=== PATIENT | male | born 1980 | race Caucasian/White ===

== ENCOUNTER 2017-12-14 11:18 | Inpatient (IN) | payer SELFPAY ==
[2017-12-14] MEDS ORDERED: DIAZEPAM INJ 10 MG/2 ML DISP.SYRIN IV ONE (11:30)
--- NOTE | 2017-12-14 11:46 | ER Document Report ---
ED Seizure - General Chief Complaint: Probable Seizure Stated Complaint: FALL FACIAL INJURY Time Seen by Provider: 12/14/17 11:29 - HPI Patient complains to provider of: Other - This 37-year-old man presented for evaluation of a seizure today, he had a seizure last remembers shaking well on his porch this morning having drank as recently as 1 day prior. He is a heavy drinking habit states that he drinks approximately 12-20 beers a day, stopped as he would like to stop drinking. He has never had a seizure in the past, has had the shakes but never had true withdrawals in the past. He is not taking any medications at this time does have history of hypertension. Does not have any history of neurologic disorder has not had any illnesses recently, nothing seems to make his shaking any better and nothing seems to make it any worse. Past Medical History - General Information source: Patient, Emergency Med Personnel - Social History Smoking Status: Current Every Day Smoker Cigarette use (# per day): Yes Chew tobacco use (# tins/day): No Frequency of alcohol use: Heavy Family History: None - Medical History Medical History: Other - hypertension Review of Systems - Review of Systems Neurological/Psychological: See HPI -: Yes All other systems reviewed and negative Physical Exam - Vital signs Notes: tachycardia, normal bp - General General appearance: Anxious In distress: Mild - HEENT Head: Normocephalic Eyes: Normal Eyelashes: Normal Pupils: PERRL - Respiratory Respiratory status: No respiratory distress Chest status: Nontender Breath sounds: Normal - Cardiovascular Murmur: No - Abdominal Inspection: Normal Distension: No distension Bowel sounds: Normal - Back Back: Normal, Other - No cervical midline tenderness - Extremities General upper extremity: Normal inspection General lower extremity: Normal inspection Shoulder: Normal - Neurological Neuro grossly intact: Yes Orientation: Disoriented to place, Disoriented to events - This person had a true postictal period, somewhat confused slightly combative. [place] Coma Scale Verbal: Oriented [place] Coma Scale Motor: Obeys Commands Speech: Normal Course - Re-evaluation Re-evalutation: 12/14/17 15:22 This 37-year-old man presented for evaluation of seizure, he had previously been an alcoholic sidestep drinking and then had what appears to be a withdrawal seizure today. While he was leaving his house. He had a true postictal period thereafter. Given that he had a postictal period do believe this represents a true seizure. Currently denies any headache does endorse some confusion is uncertain where he is at this time, he does note that he is hypertensive. Does have some slight injury across the bridge of the nose. Otherwise looks okay. Moves all extremities appropriately, is neurologically intact with a GCS of 15 at this time. He is tremulous and tachycardic, have concern for potentially developing delirium tremens as such we will initiate treatment with Valium IV 10 mg. We will re-dose 5 mg p.o. at this time, pending CT of the head brought laboratory evaluation will reassess patient. Patient with a negative head CT, will initiate IV fluids for this patient will plan to admit to the hospital for treatment of his withdrawals. Have contacted Dr. Hardwick. Recent admission at this time. We will plan for monitored bed. - Laboratory Result Diagrams: 12/14/17 11:29 12/14/17 11:29 Laboratory results interpreted by me: 12/14/17 12/14/17 12/14/17 11:29 11:29 11:41 RBC 4.21 L MCV 102 H MCH 36.3 H RDW 16.4 H Seg Neutrophils % 85.2 H Lymphocytes % 6.8 L Potassium 3.3 L Carbon Dioxide 21 L BUN 2 L Glucose 164 H POC Glucose 203 H Magnesium 1.5 L AST 104 H Urine Protein Urine Blood Urine Urobilinogen 12/14/17 12:47 RBC MCV MCH RDW Seg Neutrophils % Lymphocytes % Potassium Carbon Dioxide BUN Glucose POC Glucose Magnesium AST Urine Protein >=500 H Urine Blood MODERATE H Urine Urobilinogen 4.0 H - EKG Interpretation by [place] EKG shows normal: Sinus rhythm - 85 bpm, normal axis, poor R-wave progression, modest ST segment depression in V4 V5 Discharge - Discharge Clinical Impression: Alcohol withdrawal, Seizure Condition: Fair Disposition: ADMITTED INPATIENT Admitting Provider: Hospitalist Unit Admitted: Telemetry
[2017-12-14 11:59] LABS: ABSOLUTE LYMPHOCYTES (AUTO) 0.6 10^3/uL (0.5-4.7); ABSOLUTE MONOCYTES (AUTO) 0.7 10^3/uL (0.1-1.4); ABSOLUTE NEUT (AUTO) 7.9 10^3/uL (1.7-8.2); BASOPHILS % (AUTO) 0.3 % (0-2); EOSINOPHILS % (AUTO) 0.1 % (0-6); HEMATOCRIT 43.1 % (37.9-51.0); HEMOGLOBIN 15.3 g/dL (13.5-17.0); LYMPHOCYTES % (AUTO) 6.8 % (13-45); MEAN CORPUSCULAR HEMOGLOBIN 36.3 pg (27.0-33.4); MEAN CORPUSCULAR HGB CONC 35.4 g/dL (32.0-36.0); MEAN CORPUSCULAR VOLUME 102 fl (80-97); MONOCYTES % (AUTO) 7.6 % (3-13); PLATELET COUNT 210 10^3/uL (150-450); RED BLOOD COUNT 4.21 10^6/uL (4.35-5.55); RED CELL DISTRIBUTION WIDTH 16.4 % (11.5-14.0); SEGMENTED NEUTROPHILS % (AUTO) 85.2 % (42-78); TOTAL CELLS COUNTED % (AUTO) 100 %; WHITE BLOOD COUNT 9.2 10^3/uL (4.0-10.5)
--- NOTE | 2017-12-14 12:15 | RADIOLOGY REPORT (SQ) ---
EXAM DESCRIPTION: CT HEAD WITHOUT COMPLETED DATE/TIME: 12/14/2017 12:01 pm REASON FOR STUDY: seizure COMPARISON: None. TECHNIQUE: Axial images acquired through the brain without intravenous contrast. Images reviewed wi th bone, brain and subdural windows. Additional sagittal and coronal reconstructions were generated. Images stored on PACS. All CT scanners at this facility use dose modulation, iterative reconstruction, and/or weight based d osing when appropriate to reduce radiation dose to as low as reasonably achievable (ALARA). [facility]: Dose Right [facility]: CareDose [facility]: Dose Right [facility]: Teradose 4D [facility]: Silecs RADIATION DOSE: CT Rad equipment meets quality standard of care and radiation dose reduction techniq ues were employed. CTDIvol: 53.2 mGy. DLP: 1070 mGy-cm. mGy. LIMITATIONS: None. FINDINGS: VENTRICLES: Normal size and contour. CEREBRUM: No masses. No hemorrhage. No midline shift. No evidence for acute infarction. Normal gra y/white matter differentiation. No areas of low density in the white matter. CEREBELLUM: No masses. No hemorrhage. No alteration of density. No evidence for acute infarction. EXTRAAXIAL SPACES: No fluid collections. No masses. ORBITS AND GLOBE: No intra- or extraconal masses. Normal contour of globe without masses. CALVARIUM: No fracture. PARANASAL SINUSES: There is fairly marked mucosal thickening in the left maxillary antra. Remaining paranasal sinuses are well-aerated. SOFT TISSUES: No mass or hematoma. OTHER: No other significant finding. IMPRESSION: No significant intracranial abnormalities were identified. Sinus disease as noted above . EVIDENCE OF ACUTE STROKE: NO. COMMENT: Quality ID # [id number]: Final reports with documentation of one or more dose reduction techniques (e.g., Automated exposure control, adjustment of the mA and/or kV according to patient size, use of iterative reconstruction technique) TECHNICAL DOCUMENTATION: JOB ID: [id number] [employer]- All Rights Reserved Reading location - IP/workstation name: [email or web address]
[2017-12-14 12:25] LABS: ALANINE AMINOTRANSFERASE 62 U/L (21-72); ALBUMIN 4.5 g/dL (3.5-5.0); ALKALINE PHOSPHATASE 78 U/L (38-126); ASPARTATE AMINO TRANSFERASE 104 U/L (17-59); BILIRUBIN,DIRECT 0.4 mg/dL (0.0-0.4); BILIRUBIN,TOTAL 0.9 mg/dL (0.2-1.3); BLOOD UREA NITROGEN 2 mg/dL (7-20); CALCIUM 9.4 mg/dL (8.4-10.2); GLUCOSE 164 mg/dL (75-110); POTASSIUM 3.3 mmol/L (3.6-5.0); TOTAL PROTEIN 6.9 g/dL (6.3-8.2)
[2017-12-14 12:27] LABS: ALCOHOL < 10 mg/dL (NONE DETECTED)
[2017-12-14 12:32] LABS: CARBON DIOXIDE 21 mmol/L (22-30); CHLORIDE 104 mmol/L (98-107); SODIUM 141.8 mmol/L (137-145)
[2017-12-14 12:33] LABS: ANION GAP 17 (5-19)
[2017-12-14] MEDS ORDERED: NORMAL SALINE 1000 ML 1,000 ML IV ONE (12:46)
[2017-12-14] MEDS ORDERED: DIAZEPAM 5 MG TABLET PO ONE ×2 (12:47→14:44)
[2017-12-14 13:13] LABS: APPEARANCE,URINE CLEAR; BILIRUBIN,URINE NEGATIVE (NEGATIVE); COLOR,URINE YELLOW; GLUCOSE, URINE NEGATIVE (NEGATIVE); KETONES,URINE NEGATIVE (NEGATIVE); LEUKOCYTE ESTERASE,URINE NEGATIVE (NEGATIVE); NITRITE,URINE NEGATIVE (NEGATIVE); PROTEIN,URINE >=500 mg/dL (NEGATIVE); URINE SPECIFIC GRAVITY 1.018
[2017-12-14 13:28] LABS: URINE AMPHETAMINES SCREEN NEGATIVE; URINE BARBITURATES SCREEN NEGATIVE; URINE BENZODIAZEPINES SCREEN UNCONFIRMED POSITIVE; URINE COCAINE SCREEN NEGATIVE; URINE MARIJUANA (THC) SCREEN UNCONFIRMED POSITIVE; URINE METHADONE SCREEN NEGATIVE; URINE PHENCYCLIDINE SCREEN NEGATIVE
[2017-12-14] MEDS ORDERED: PROMETHAZINE HCL INJ 25 MG/1 ML VIAL IV PRN (14:51)
--- NOTE | 2017-12-14 15:21 | PDOC H&P ---
History of Present Illness History of Present Illness: MELANY BOURGEOIS is a 37 year old male patient with long-standing history of alcohol abuse brought by EMS after he sustained accidental fall after he has seizure. Patient states he drinks about 12-18 cans of beer daily and since yesterday he could wait and try to detoxify himself, then patient starts to have withdrawal seizure. He denies chills, fever, chest pain, cough, palpitation, diaphoresis, nausea, vomiting or diarrhea. He denies dizziness, headache or blurry of vision. Patient has history of hypertension and he smokes a pack a day. Past Medical History Cardiac Medical History: Reports: Hypertension Social History Smoking Status: Current Every Day Smoker Frequency of Alcohol Use: Heavy Hx Recreational Drug Use: No Drugs: None - Advance Directive Resuscitation Status: Full Code Family History Family History: Other - Alcohol abuse Parental Family History Reviewed: Yes Children Family History Reviewed: Yes Sibling(s) Family History Reviewed.: Yes Medication/Allergy Home Medications: Albuterol Sulfate [Proair HFA Inhalation Aerosol 8.5 gm MDI] 2 puff IH Q4HP PRN 12/14/17 Review of Systems Constitutional: PRESENT: as per HPI Ears: PRESENT: as per HPI Cardiovascular: PRESENT: as per HPI Respiratory: PRESENT: as per HPI Musculoskeletal: PRESENT: as per HPI Neurological: PRESENT: as per HPI Physical Exam Vital Signs: Intake & Output 12/13/17 12/14/17 12/15/17 06:59 06:59 06:59 Weight 81.647 kg General appearance: PRESENT: mild distress Head exam: PRESENT: other - Laceration on his nose Respiratory exam: PRESENT: clear to auscultation grace. ABSENT: rales, rhonchi, wheezes Cardiovascular exam: PRESENT: RRR. ABSENT: diastolic murmur, rubs, systolic murmur GI/Abdominal exam: PRESENT: normal bowel sounds, soft. ABSENT: distended, guarding, mass, organolmegaly, rebound, tenderness Extremities exam: PRESENT: full ROM. ABSENT: calf tenderness, clubbing, pedal edema Neurological exam: PRESENT: alert, awake, oriented to time, oriented to situation Results Laboratory Results: 12/14/17 11:29 12/14/17 11:29 12/14/17 12/14/17 12/14/17 11:29 11:29 12:47 WBC 9.2 RBC 4.21 L Hgb 15.3 Hct 43.1 MCV 102 H MCH 36.3 H MCHC 35.4 RDW 16.4 H Plt Count 210 Seg Neutrophils % 85.2 H Lymphocytes % 6.8 L Monocytes % 7.6 Eosinophils % 0.1 Basophils % 0.3 Absolute Neutrophils 7.9 Absolute Lymphocytes 0.6 Absolute Monocytes 0.7 Absolute Eosinophils 0.0 Absolute Basophils 0.0 Sodium 141.8 Potassium 3.3 L Chloride 104 Carbon Dioxide 21 L Anion Gap 17 BUN 2 L Creatinine 0.76 Est GFR ( Amer) > 60 Est GFR (Non-Af Amer) > 60 Glucose 164 H Calcium 9.4 Magnesium 1.5 L Total Bilirubin 0.9 AST 104 H ALT 62 Alkaline Phosphatase 78 Total Protein 6.9 Albumin 4.5 Urine Color YELLOW Urine Appearance CLEAR Urine pH 5.0 Ur Specific [place] 1.018 Urine Protein >=500 H Urine Glucose (UA) NEGATIVE Urine Ketones NEGATIVE Urine Blood MODERATE H Urine Nitrite NEGATIVE Ur Leukocyte Esterase NEGATIVE Urine WBC (Auto) 1 Urine RBC (Auto) 1 Impressions: Head CT 12/14/17 11:32 IMPRESSION: No significant intracranial abnormalities were identified. Sinus disease as noted above. EVIDENCE OF ACUTE STROKE: NO. Assessment & Plan - Diagnosis (1) Alcohol withdrawal seizure Is this a current diagnosis for this admission?: Yes Plan: Patient has been started on IV Keppra 500 mg twice a day (2) Alcohol withdrawal Qualifiers: Complication of substance-induced condition: uncomplicated Qualified Code(s ): F10.230 - Alcohol dependence with withdrawal, uncomplicated Is this a current diagnosis for this admission?: Yes Plan: Patient has been started on as needed Ativan and scheduled diazepam. (3) Alcohol dependence Is this a current diagnosis for this admission?: Yes Plan: Patient has been counseled and encouraged to remain sober. Patient has been started on IV folic acid, thiamine and magnesium. (4) Hypertension Is this a current diagnosis for this admission?: Yes Plan: Patient has been started on Lopressor 50 mg twice daily (5) Tobacco dependence Is this a current diagnosis for this admission?: Yes Plan: And counseled and encouraged to quit smoking.
[2017-12-14] MEDS: DIAZEPAM 5 MG TABLET PO SCH (18:36)
[2017-12-14] MEDS: LANSOPRAZOLE 30 MG TAB.RAP.DR PO SCH (18:44)
[2017-12-14] MEDS: MAGNESIUM OXIDE 400 MG TABLET PO SCH (18:45)
[2017-12-14] MEDS ORDERED: METOPROLOL TARTRATE 50 MG TABLET PO SCH (18:45)
[2017-12-14] MEDS: LEVETIRACETAM 500 MG/NACL-ISO 500 MG/100 ML RTUPB IV SCH (18:46)
[2017-12-14] MEDS: LORAZEPAM INJ 2 MG/1 ML VIAL IV PRN (19:26)
[2017-12-14] MEDS: THIAMINE HCL 100 MG, FOLIC ACID 1 MG in NORMAL SALINE 250 ML IV SCH (19:27)
--- NOTE | 2017-12-14 22:29 | EKG REPORT ---
SEVERITY:- ABNORMAL ECG - SINUS RHYTHM LEFT VENTRICULAR HYPERTROPHY PROLONGED QT INTERVAL : Confirmed by: Narda Brody 14-Dec-2017 22:28:23
[2017-12-15] MEDS: DIAZEPAM 5 MG TABLET PO SCH ×5 (00:31→23:54)
[2017-12-15] MEDS ORDERED: LEVETIRACETAM 500 MG/NACL-ISO 500 MG/100 ML RTUPB IV ONE (05:49)
[2017-12-15 06:04] LABS: ABSOLUTE EOSINOPHILS # (AUTO) 0.1 10^3/uL (0.0-0.6); ABSOLUTE LYMPHOCYTES (AUTO) 1.1 10^3/uL (0.5-4.7); ABSOLUTE MONOCYTES (AUTO) 0.8 10^3/uL (0.1-1.4); ABSOLUTE NEUT (AUTO) 7.4 10^3/uL (1.7-8.2); BASOPHILS % (AUTO) 0.4 % (0-2); EOSINOPHILS % (AUTO) 1.5 % (0-6); HEMATOCRIT 40.6 % (37.9-51.0); HEMOGLOBIN 14.4 g/dL (13.5-17.0); LYMPHOCYTES % (AUTO) 11.8 % (13-45); MEAN CORPUSCULAR HEMOGLOBIN 36.3 pg (27.0-33.4); MEAN CORPUSCULAR HGB CONC 35.4 g/dL (32.0-36.0); MEAN CORPUSCULAR VOLUME 103 fl (80-97); MONOCYTES % (AUTO) 8.6 % (3-13); PLATELET COUNT 176 10^3/uL (150-450); RED BLOOD COUNT 3.96 10^6/uL (4.35-5.55); RED CELL DISTRIBUTION WIDTH 16.3 % (11.5-14.0); SEGMENTED NEUTROPHILS % (AUTO) 77.7 % (42-78); TOTAL CELLS COUNTED % (AUTO) 100 %; WHITE BLOOD COUNT 9.6 10^3/uL (4.0-10.5)
[2017-12-15] MEDS: LEVETIRACETAM 500 MG/NACL-ISO 500 MG/100 ML RTUPB IV SCH ×2 (06:04→17:43)
[2017-12-15] MEDS: LANSOPRAZOLE 30 MG TAB.RAP.DR PO SCH ×2 (06:04→17:44)
[2017-12-15 06:35] LABS: ALANINE AMINOTRANSFERASE 50 U/L (21-72); ALBUMIN 3.9 g/dL (3.5-5.0); ALKALINE PHOSPHATASE 70 U/L (38-126); ANION GAP 13 (5-19); ASPARTATE AMINO TRANSFERASE 62 U/L (17-59); BILIRUBIN,DIRECT 0.4 mg/dL (0.0-0.4); BILIRUBIN,TOTAL 1.3 mg/dL (0.2-1.3); BLOOD UREA NITROGEN 4 mg/dL (7-20); CALCIUM 9.6 mg/dL (8.4-10.2); CARBON DIOXIDE 24 mmol/L (22-30); CHLORIDE 107 mmol/L (98-107); GLUCOSE 93 mg/dL (75-110); POTASSIUM 3.2 mmol/L (3.6-5.0); SODIUM 143.5 mmol/L (137-145); TOTAL PROTEIN 6.4 g/dL (6.3-8.2)
[2017-12-15] MEDS: ENOXAPARIN SODIUM INJ 40 MG/0.4 ML DISP.SYRIN SUBCUT SCH (11:43)
[2017-12-15] MEDS: MAGNESIUM OXIDE 400 MG TABLET PO SCH ×2 (11:45→17:43)
[2017-12-15] MEDS: METOPROLOL TARTRATE 50 MG TABLET PO SCH ×2 (11:45→22:11)
[2017-12-15] MEDS ORDERED: POTASSIUM CHLORIDE 10 MEQ CAPSULE.ER PO ONE (14:02)
--- NOTE | 2017-12-15 14:02 | PDOC PROGRESS REPORT ---
Subjective Progress Note for:: 12/15/17 Subjective:: 37-year-old male alcoholic, drinks about 12-18 cans of beer a day and presented after having a seizure and therefore when he tries to stop drinking. No recurrent seizure at this time. Denies chest pain or shortness of breath. No fever or chills, denies headache. Reason For Visit: ALCOHOL WITHDRAWAL SEIZURES,ALCOHOL WITHDRAWAL Physical Exam Vital Signs: Temp Pulse Resp BP Pulse Ox 97.7 F 67 14 133/90 H 100 12/15/17 07:46 12/15/17 08:15 12/15/17 07:46 12/15/17 08:15 12/15/17 07:46 Intake & Output 12/14/17 12/15/17 12/16/17 06:59 06:59 06:59 Intake Total 351.2 Balance 351.2 Weight 63.9 kg GEN: NAD, well-developed, well-nourished CV: RRR, NL S1S2 LUNGS: CTA bilaterally ABDOMEN Soft, NT, +BS EXTERMITIES: No e/c/c NEURO: Alert, oriented 3, no focal weakness. Results Laboratory Results: 12/15/17 05:35 12/15/17 05:35 12/15/17 12/15/17 05:35 05:35 WBC 9.6 RBC 3.96 L Hgb 14.4 Hct 40.6 MCV 103 H MCH 36.3 H MCHC 35.4 RDW 16.3 H Plt Count 176 Seg Neutrophils % 77.7 Lymphocytes % 11.8 L Monocytes % 8.6 Eosinophils % 1.5 Basophils % 0.4 Absolute Neutrophils 7.4 Absolute Lymphocytes 1.1 Absolute Monocytes 0.8 Absolute Eosinophils 0.1 Absolute Basophils 0.0 Sodium 143.5 Potassium 3.2 L Chloride 107 Carbon Dioxide 24 Anion Gap 13 BUN 4 L Creatinine 0.66 Est GFR ( Amer) > 60 Est GFR (Non-Af Amer) > 60 Glucose 93 Calcium 9.6 Magnesium 1.6 Total Bilirubin 1.3 AST 62 H ALT 50 Alkaline Phosphatase 70 Total Protein 6.4 Albumin 3.9 Impressions: Head CT 12/14/17 11:32 IMPRESSION: No significant intracranial abnormalities were identified. Sinus disease as noted above. EVIDENCE OF ACUTE STROKE: NO. Assessment & Plan - Plan Summary Plan Summary: (1) Alcohol withdrawal seizure Is this a current diagnosis for this admission?: Yes Plan: Patient was been started on IV Keppra 500 mg twice a day. Currently with no recurrent seizure. We will continue for now, but patient may be able to come off of this in the future if he stops drinking and no recurrent seizures. (2) Alcohol withdrawal Qualifiers: Complication of substance-induced condition: uncomplicated Qualified Code(s ): F10.230 - Alcohol dependence with withdrawal, uncomplicated Is this a current diagnosis for this admission?: Yes Plan: We will continue as needed Ativan and scheduled diazepam. (3) Alcohol dependence Is this a current diagnosis for this admission?: Yes Plan: Patient has been counseled and encouraged to remain sober. Continue folic acid, thiamine and magnesium. (4) Hypertension Is this a current diagnosis for this admission?: Yes Plan: Continue on Lopressor 50 mg twice daily (5) Tobacco dependence Is this a current diagnosis for this admission?: Yes Plan: Smoking cessation counseling. (5) Hypokalemia Is this a current diagnosis for this admission?: Yes Plan: We will replace potassium with KCl 40 M EQ p.o. 1. Continue magnesium oxide. Follow-up Chem-7 in a.m.
[2017-12-15] MEDS: LORAZEPAM INJ 2 MG/1 ML VIAL IV PRN ×3 (15:14→22:16)
[2017-12-15] MEDS: THIAMINE HCL 100 MG, FOLIC ACID 1 MG in NORMAL SALINE 250 ML IV SCH (17:54)
[2017-12-16] MEDS: LORAZEPAM INJ 2 MG/1 ML VIAL IV PRN ×3 (00:30→10:21)
[2017-12-16 05:20] LABS: ABSOLUTE EOSINOPHILS # (AUTO) 0.2 10^3/uL (0.0-0.6); ABSOLUTE LYMPHOCYTES (AUTO) 1.3 10^3/uL (0.5-4.7); ABSOLUTE MONOCYTES (AUTO) 0.5 10^3/uL (0.1-1.4); ABSOLUTE NEUT (AUTO) 4.8 10^3/uL (1.7-8.2); BASOPHILS % (AUTO) 0.6 % (0-2); EOSINOPHILS % (AUTO) 2.3 % (0-6); HEMATOCRIT 39.1 % (37.9-51.0); HEMOGLOBIN 13.8 g/dL (13.5-17.0); LYMPHOCYTES % (AUTO) 19.1 % (13-45); MEAN CORPUSCULAR HEMOGLOBIN 36.3 pg (27.0-33.4); MEAN CORPUSCULAR HGB CONC 35.3 g/dL (32.0-36.0); MEAN CORPUSCULAR VOLUME 103 fl (80-97); MONOCYTES % (AUTO) 7.9 % (3-13); PLATELET COUNT 139 10^3/uL (150-450); RED CELL DISTRIBUTION WIDTH 16.3 % (11.5-14.0); SEGMENTED NEUTROPHILS % (AUTO) 70.1 % (42-78); TOTAL CELLS COUNTED % (AUTO) 100 %; WHITE BLOOD COUNT 6.9 10^3/uL (4.0-10.5)
[2017-12-16] MEDS: DIAZEPAM 5 MG TABLET PO SCH ×2 (05:22→12:01)
[2017-12-16] MEDS: LEVETIRACETAM 500 MG/NACL-ISO 500 MG/100 ML RTUPB IV SCH (05:24)
[2017-12-16 05:38] LABS: ALANINE AMINOTRANSFERASE 55 U/L (21-72); ALBUMIN 3.6 g/dL (3.5-5.0); ALKALINE PHOSPHATASE 63 U/L (38-126); ANION GAP 14 (5-19); ASPARTATE AMINO TRANSFERASE 63 U/L (17-59); BILIRUBIN,DIRECT 0.3 mg/dL (0.0-0.4); BILIRUBIN,TOTAL 0.9 mg/dL (0.2-1.3); BLOOD UREA NITROGEN 5 mg/dL (7-20); CALCIUM 9.3 mg/dL (8.4-10.2); CARBON DIOXIDE 22 mmol/L (22-30); CHLORIDE 108 mmol/L (98-107); GLUCOSE 124 mg/dL (75-110); POTASSIUM 3.1 mmol/L (3.6-5.0); SODIUM 143.6 mmol/L (137-145)
[2017-12-16] MEDS: LANSOPRAZOLE 30 MG TAB.RAP.DR PO SCH (05:57)
[2017-12-16] MEDS ORDERED: POTASSIUM CHLORIDE 10 MEQ CAPSULE.ER PO ONE (08:45)
[2017-12-16] MEDS ORDERED: ALBUTEROL SULFATE HFA (90 MCG/PUFF) 200 PUFF/8.5 GM MDI IH PRN (10:12)
[2017-12-16] MEDS ORDERED: HALOPERIDOL LACTATE INJ 5 MG/1 ML VIAL IV PRN (10:16)
[2017-12-16] MEDS: MAGNESIUM OXIDE 400 MG TABLET PO SCH (10:20)
[2017-12-16] MEDS: ENOXAPARIN SODIUM INJ 40 MG/0.4 ML DISP.SYRIN SUBCUT SCH (10:21)
[2017-12-16] MEDS: METOPROLOL TARTRATE 50 MG TABLET PO SCH (10:21)
[2017-12-16] MEDS ORDERED: HYDROCODONE/ACETAMINOPHEN 5-325 MG TABLET PO ONE ×2 (10:45→12:00)
[2017-12-16 13:47] VITALS: BP 133/90
--- NOTE | 2017-12-16 18:13 | PDOC DISCHARGE SUMMARY ---
General - Admit/Disc Date/PCP Admission Date/Primary Care Provider: 12/14/17 15:10 Discharge Date: 12/16/17 - Discharge Diagnosis (1) Alcohol dependence Is this a current diagnosis for this admission?: Yes (2) Alcohol withdrawal Is this a current diagnosis for this admission?: Yes (3) Alcohol withdrawal seizure Is this a current diagnosis for this admission?: Yes (4) Hypertension Is this a current diagnosis for this admission?: Yes (5) Tobacco dependence Is this a current diagnosis for this admission?: Yes - Additional Information Resuscitation Status: Full Code Discharge Diet: As Tolerated Discharge Activity: Activity As Tolerated Home Medications: Albuterol Sulfate [Proair HFA Inhalation Aerosol 8.5 gm MDI] 2 puff IH Q4HP PRN 12/14/17 History of Present Illness History of Present Illness: H&P by Dr. Will: MELANY BOURGEOIS is a 37 year old male patient with long-standing history of alcohol abuse brought by EMS after he sustained accidental fall after he has seizure. Patient states he drinks about 12-18 cans of beer daily and since yesterday he could wait and try to detoxify himself , then patient starts to have withdrawal seizure. He denies chills, fever, chest pain, cough, palpitation, diaphoresis, nausea, vomiting or diarrhea. He denies dizziness, headache or blurry of vision. Patient has history of hypertension and he smokes a pack a day. Hospital Course Hospital Course: The patient was admitted to [facility] on continuous cardiac telemetry. He was placed on IV Keppra for seizure prevention. He was provided scheduled p.o. Valium and as needed IV Ativan for alcohol withdrawal symptoms. His hypertension was further managed with Lopressor 50 mg twice daily. He was provided IV folic acid, thiamine, and magnesium. He did require p.o. potassium replacement 2. The patient informed nursing that he intended to go AMA today; therefore, psychiatry was requested to evaluate for inpatient rehab/psychiatric care/IVC needs. The psychiatric screener did evaluate the patient; at this time their formal note is not yet available, however they did clear him from psychiatric perspective. The patient was strongly encouraged to remain inpatient was advised of the danger of repeat seizures. Despite this, the patient left AGAINST MEDICAL ADVICE this afternoon. Physical Exam Vital Signs: Temp Pulse Resp BP Pulse Ox 98.0 F 65 15 133/90 H 100 12/16/17 13:46 12/16/17 13:46 12/16/17 13:46 12/16/17 13:46 12/16/17 13:46 Intake & Output 12/15/17 12/16/17 12/17/17 06:59 06:59 06:59 Intake Total 451.2 1001.2 0 Balance 451.2 1001.2 0 Weight 63.9 kg General appearance: PRESENT: no acute distress, disheveled, well-developed, well -nourished. ABSENT: cooperative Head exam: PRESENT: normocephalic, other - Ecchymosis to bilateral orbits, abrasion to bridge of nose, and chin. Eye exam: PRESENT: conjunctiva pink, EOMI, PERRLA. ABSENT: scleral icterus Ear exam: PRESENT: normal external ear exam Mouth exam: PRESENT: moist, tongue midline Neck exam: ABSENT: carotid bruit, JVD, lymphadenopathy, thyromegaly Respiratory exam: PRESENT: clear to auscultation grace, symmetrical, unlabored. ABSENT: rales, rhonchi, wheezes Cardiovascular exam: PRESENT: RRR, +S1, +S2, tachycardia. ABSENT: diastolic murmur, rubs, systolic murmur Pulses: PRESENT: normal dorsalis pedis pul Vascular exam: PRESENT: normal capillary refill GI/Abdominal exam: PRESENT: normal bowel sounds, soft. ABSENT: distended, guarding, mass, organolmegaly, rebound, tenderness Rectal exam: PRESENT: deferred Extremities exam: PRESENT: full ROM. ABSENT: calf tenderness, clubbing, pedal edema Neurological exam: PRESENT: alert, awake, oriented to person, oriented to place , oriented to time, oriented to situation, CN II-XII grossly intact, other - Tremulous. ABSENT: motor sensory deficit Psychiatric exam: PRESENT: agitated, anxious, appropriate affect. ABSENT: homicidal ideation, suicidal ideation Skin exam: PRESENT: dry, intact, warm, other - Diaphoretic. ABSENT: cyanosis, rash Results Laboratory Results: 12/16/17 04:50 12/16/17 04:50 12/16/17 12/16/17 04:50 04:50 WBC 6.9 RBC 3.80 L Hgb 13.8 Hct 39.1 MCV 103 H MCH 36.3 H MCHC 35.3 RDW 16.3 H Plt Count 139 L Seg Neutrophils % 70.1 Lymphocytes % 19.1 Monocytes % 7.9 Eosinophils % 2.3 Basophils % 0.6 Absolute Neutrophils 4.8 Absolute Lymphocytes 1.3 Absolute Monocytes 0.5 Absolute Eosinophils 0.2 Absolute Basophils 0.0 Sodium 143.6 Potassium 3.1 L Chloride 108 H Carbon Dioxide 22 Anion Gap 14 BUN 5 L Creatinine 0.68 Est GFR ( Amer) > 60 Est GFR (Non-Af Amer) > 60 Glucose 124 H Calcium 9.3 Magnesium 1.7 Total Bilirubin 0.9 AST 63 H ALT 55 Alkaline Phosphatase 63 Total Protein 6.0 L Albumin 3.6 Impressions: Head CT 12/14/17 11:32 IMPRESSION: No significant intracranial abnormalities were identified. Sinus disease as noted above. EVIDENCE OF ACUTE STROKE: NO. Qualifiers - * PATIENT BEING DISCHARGED WITH ANY OF THE FOLLOWING DIAGNOSIS: No Plan Discharge Plan: The patient left AGAINST MEDICAL ADVICE.
[2017-12-16] MEDS ORDERED: BUPROPION HCL 75 MG TABLET PO SCH (22:00)
--- NOTE | 2017-12-17 18:39 | PSYCHOLOGICAL NOTE ---
Psych Note - Psych Note Psych Note: Met with patient because patient threatened to leave against medical advice due to alcohol withdrawal. Patient had a seizure, fell down and suffered injuries. Clinician met with patient and he denies wanting to hurt himself or anyone else. Clinician staffed case with DARIN Reed and it was determined that he could be discharged from [facility].
== END 2017-12-16 14:06 | disposition left against medical advice (07) | DRG 894 ==
LOC: EDBD 11:18 → ER 11:18 → UNDOADMIN 15:10 → EH 15:10 → 3S 12-15 00:18
PROVIDERS: ADMIT Internal Medicine; ATTEND Internal Medicine
DX: F10.231 Alcohol dependence with withdrawal delirium (principal); G40.509 Epileptic seizures related to external causes, not intractable, without status epilepticus; I10 Essential (primary) hypertension; Z79.51 Long term (current) use of inhaled steroids
CPT/HCPCS: 36415; 70450; 80048; 80053; 80076; 80307; 81001; 82962; 83735; 85025; 93005; 93010; 96361; 96374; 99285; J1650; J1953; J2060; J3360; J3411; J3490; J7030; J7050

== ENCOUNTER 2017-12-21 21:40 | Emergency (ER) | payer SELFPAY ==
[2017-12-22] MEDS ORDERED: HYDROCODONE/ACETAMINOPHEN 5-325 MG TABLET PO ONE ×2 (02:29→07:17)
--- NOTE | 2017-12-22 02:29 | ER Document Report ---
ED Medical Screen (RME) - General Chief Complaint: Leg Injury Stated Complaint: FALL/LEG INJURY Time Seen by Provider: 12/22/17 02:26 Mode of Arrival: Wheelchair Information source: Patient Notes: Patient with complaint of laceration to his left calf. Patient reports that he slipped and hit a fish tank resulting in his laceration. Patient reports tetanus is up-to-date. Exam: 4 cm laceration to posterior left calf. No active bleeding at this time. I have greeted and performed a rapid initial assessment of this patient. A comprehensive ED assessment and evaluation of the patient, analysis of test results and completion of the medical decision making process will be conducted by additional ED providers. Dictation of this chart was performed using voice recognition software; therefore, there may be some unintended grammatical errors. TRAVEL OUTSIDE OF THE [place] IN LAST 30 DAYS: No - Related Data Allergies/Adverse Reactions: No Known Allergies Allergy (Unverified 12/14/17 18:43) Past Medical History - Past Medical History Cardiac Medical History: Reports: Hx Hypertension Renal/ Medical History: Denies: Hx Peritoneal Dialysis Psychiatric Medical History: Denies: Hx Depression - Immunizations History of Influenza Vaccine for 02/2017 - 07/2017 Season: No Physical Exam - Vital signs Vitals: Temp Pulse Resp BP Pulse Ox 98.5 F 80 18 136/97 H 98 12/21/17 21:54 12/21/17 21:54 12/21/17 21:54 12/21/17 21:54 12/21/17 21:54 Course - Vital Signs Vital signs: Temp Pulse Resp BP Pulse Ox 98.5 F 80 18 136/97 H 98 12/21/17 21:54 12/21/17 21:54 12/21/17 21:54 12/21/17 21:54 12/21/17 21:54
--- NOTE | 2017-12-22 03:23 | RADIOLOGY REPORT (SQ) ---
EXAM DESCRIPTION: XR TIBIA FIBULA 2 VIEWS COMPLETED DATE/TME: 12/22/2017 02:29 CLINICAL HISTORY: 37 years Male, r/o fb, laceration COMPARISON: None. Findings: Known soft tissue injury; no radioopaque foreign body. Bones, joints, and soft tissues of the XR R TIBIA FIBULA 2 VIEWS appear otherwise intact. IMPRESSION: Soft tissue injury; else, no acute findings. .
[2017-12-22] MEDS ORDERED: DIPH/PERTUSS(ACELL)/TETANUS VAC/PF 0.5 ML SYR (>=10YO) IM ONE (07:17)
[2017-12-22] MEDS ORDERED: LIDOCAINE 1%/EPINEPHRINE INJ 20 ML VIAL INJ ONE (07:18)
[2017-12-22] MEDS ORDERED: CEPHALEXIN 500 MG CAPSULE PO ONE (07:18)
--- NOTE | 2017-12-22 07:20 | ER Document Report ---
HPI - HPI Patient complains to provider of: Leg laceration Onset: Yesterday Onset/Duration: Sudden Quality of pain: Achy Pain Level: 3 Context: Patient states that he fell on an aquarium and cut his right leg. Patient is uncertain when his last tetanus immunization was. Associated Symptoms: Other - Right leg laceration Exacerbated by: Movement Relieved by: Denies Similar symptoms previously: No Recently seen / treated by doctor: No - ROS ROS below otherwise negative: Yes Systems Reviewed and Negative: Yes All other systems reviewed and negative - CONSTITUTIONAL Constitutional: DENIES: Fever - NEURO Neurology: DENIES: Headache, Weakness - CARDIOVASCULAR Cardiovascular: DENIES: Chest pain - RESPIRATORY Respiratory: DENIES: Trouble Breathing, Coughing - GASTROINTESTINAL Gastrointestinal: DENIES: Abdominal Pain - MUSCULOSKELETAL Musculoskeletal: REPORTS: Extremity pain - right leg laceration - DERM Skin Problems: Laceration Past Medical History - General Information source: Patient - Social History Smoking Status: Current Every Day Smoker Smoking Education Provided: Yes Frequency of alcohol use: admits to drinking 18-20 beers/day Drug Abuse: None Occupation: None Family History: None Patient has suicidal ideation: No Patient has homicidal ideation: No - Past Medical History Cardiac Medical History: Reports: Hx Hypertension Renal/ Medical History: Denies: Hx Peritoneal Dialysis Psychiatric Medical History: Denies: Hx Depression Past Surgical History: Reports: Hx Abdominal Surgery - hernia repair, Hx Orthopedic Surgery - left knee replacement Vertical Provider Document - CONSTITUTIONAL Agree With Documented VS: Yes Exam Limitations: No Limitations General Appearance: WD/WN, No Apparent Distress - INFECTION CONTROL TRAVEL OUTSIDE OF THE [place] IN LAST 30 DAYS: No - HEENT HEENT: Atraumatic, Normocephalic - NECK Neck: Normal Inspection - RESPIRATORY Respiratory: Breath Sounds Normal, No Respiratory Distress - CARDIOVASCULAR Cardiovascular: Regular Rate, Regular Rhythm - BACK Back: Normal Inspection - MUSCULOSKELETAL/EXTREMETIES Musculoskeletal/Extremeties: MAEW, FROM - NEURO Level of Consciousness: Awake, Alert, Appropriate Motor/Sensory: No Motor Deficit - DERM Integumentary: Warm, Dry, Laceration - 6 cm lac to right calf Course - Vital Signs Vital signs: Temp Pulse Resp BP Pulse Ox 98.7 F 85 18 133/74 H 94 12/22/17 06:53 12/22/17 06:53 12/22/17 06:53 12/22/17 06:53 12/22/17 06:53 - Diagnostic Test Radiology reviewed: Reports reviewed Procedures - Laceration/Wound Repair Right Leg Wound length (cm): 6 Wound's Depth, Shape: Irregular Anesthetic type: 1% Lidocaine w/epi Volume Anesthetic (mLs): 3 Wound explored: Clean, No foreign body removed Irrigated w/ Saline (mLs): 1,200 Wound Repaired With: Sutures Suture Size/Type: 4:0, Nylon Number of Sutures: 9 Layer Closure?: No Deep Layer Suture Size/Type: 4:0 Post-procedure wound care: Sterile dressing applied Post-procedure NV exam normal: Yes Complications: No Adult Front & Back picture: 1 - 6 cm lac Discharge - Discharge Clinical Impression: Laceration of right lower leg Qualifiers: Encounter type: initial encounter Qualified Code(s): S81.811A - Laceration without foreign body, right lower leg, initial encounter Condition: Stable Disposition: HOME, SELF-CARE Additional Instructions: Return immediately for any new or worsening symptoms Followup with your primary care provider, call tomorrow to make a followup appointment Suture removal in 12 days LACERATION CARE: Your laceration has been sutured to keep the skin edges aligned during healing. The time of suture removal depends on the nature and location of your cut. Please follow the care instructions the doctor has outlined for you and return for further care, according to the schedule you've been given. Keep the wound and dressing clean. Unless you were told otherwise, you may shower daily, blotting the wound dry with a clean, unused towel. At other times, If the dressing gets wet or blood soaked, remove it and blot the wound dry, then reapply a new dressing. Unless you were instructed otherwise, dressings should be changed at least daily. If any signs of infection occur (swelling, redness, drainage, increasing tenderness, red streaks, tender lumps in the armpit or groin above the laceration, or fever), see the doctor immediately. SOAP CLEANSING: Gently wash the wound daily using a mild soap (like Ivory, Phisoderm, Neutrogena). Use warm water, rubbing gently until all debris, ooze, and crusting have been washed from the wound. Allow to dry briefly (about 10 minutes) after cleaning. Repeat this cleansing at least three times a day for the first two days and then once or twice a day. TETANUS IMMUNIZATION GIVEN: You have been given an immunization against tetanus. Please record this in your records. In general, a booster is needed only once every 10 years. The tetanus shot protects against tetanus or "lockjaw," which is a complication of certain wound infections (the tetanus shot cannot protect against the actual infection). The immunization site may become warm and red due to local reaction. If this occurs, apply warm compresses and take aspirin or ibuprofen to reduce inflammation and discomfort. Return for evaluation if the reaction becomes severe. PROPHYLACTIC ANTIBIOTIC: The antibiotics which have been prescribed are designed to decrease the risk of infection. Only certain types of wounds benefit from this -- the typical cut, scrape, or burn DOES NOT require antibiotics. Of course, infection can still occur despite the use of prophylactic antibiotics. Your wound will heal with less chance of an infectious complication if you take the medication as directed. The most important dose is the FIRST dose, so don't delay filling the prescription! FOLLOW-UP CARE: Your sutures should be removed in ___12__ days. To facilitate a timely removal of your sutures, you may return to the Emergency Department at [facility]. You do not need to call for an appointment, but the best time to come in for suture removal is early in the morning. If you have been referred to another physician for follow-up care, call that physicians office for an appointment as you were instructed. If you experience a significant change in your laceration, or if you are concerned there may be an infection (swelling, redness, drainage, increasing tenderness, red streaks, tender lumps in the armpit or groin above the laceration, or fever) , return to the Emergency Department immediately re-evaluation. Prescriptions: Cephalexin Monohydrate [Keflex 500 mg Capsule] 500 mg PO Q6H 5 Days capsule Naproxen [Naprosyn 250 Nmg Tablet] 1 tab PO BID #14 tablet Forms: Smoking Cessation Education Referrals: [facility] [Provider Group] - Follow up as needed [facility] [place] [Provider Group] - Follow up as needed
[2017-12-22 09:12] VITALS: BP 139/64
== END 2017-12-22 09:11 | disposition home or self-care (01) ==
LOC: ER 21:40
PROC: 0HQKXZZ Repair Right Lower Leg Skin, External Approach (ICD-10-PCS; principal; 2017-12-21)
DX: S81.811A Laceration without foreign body, right lower leg, initial encounter (principal); W18.39XA Other fall on same level, initial encounter; I10 Essential (primary) hypertension; F17.200 Nicotine dependence, unspecified, uncomplicated; Z23 Encounter for immunization
CPT/HCPCS: 99283; 90471; 73590; 90715; 12002; J3490

== ENCOUNTER 2017-12-28 14:22 | Emergency (ER) | payer SELFPAY ==
--- NOTE | 2017-12-28 14:34 | ER Document Report ---
ED General - General Mode of Arrival: Medic Information source: Patient TRAVEL OUTSIDE OF THE [place] IN LAST 30 DAYS: No <PARIS LUCIO - Last Filed: 12/29/17 00:24> <DIONTE BREAUX - Last Filed: 12/29/17 00:26> - General Stated Complaint: POSSIBLE SEIZURE Time Seen by Provider: 12/28/17 14:23 Notes: 37 y.o male with HTN presents to the ED via EMS s/p possible seizure. Pt reports that today he was not going to drink as much as he normally does but he got into a heated argument with his girlfriend who then left and he did not know where she was. He states that then he went to take the dog out and the next thing he knew he was lying in his yard and did not know where he was and no one was around. Pt reports that today he has drank a 12 pack of 12oz beer. He complains of soreness to his bilateral shoulders. He denies any incontinence. Pt reports that about 2 weeks ago he was standing in the front yard and started to shake and was shaking all throughout the night so he called his girlfriend and then was sitting out on the porch and the next thing he knew the ambulance was at his house and we was not able to recall who his girlfriend was and was admitted to the hospital. Pt reports that he usually drinks about 10 beers from a 15 pack of 16 oz beers. He denies following up with a neurologist since he was seen for a seizure 2 weeks ago. He denies any problems with seizures since discharge from the hospital until today. Pt states that he used to take Ultram and Tramadol in the past, about 3-4 years ago. When advised that Tramadol and Ultram can increase risk for seizures pt admits that he took a Tramadol to help him sleep before he had the seizure about 2 weeks ago. Pt denies taking his HTN medications as prescribed but states that he takes only half a tablet every 3 days instead of one tablet twice a day. (PARIS LUCIO) - Related Data Allergies/Adverse Reactions: No Known Allergies Allergy (Unverified 12/14/17 18:43) Past Medical History - General Information source: Patient - Social History Smoking Status: Current Every Day Smoker Chew tobacco use (# tins/day): No Smoking Education Provided: Yes Frequency of alcohol use: Heavy - about 10 16oz beers a day Drug Abuse: Marijuana Family History: None - Past Medical History Cardiac Medical History: Reports: Hx Hypertension Renal/ Medical History: Denies: Hx Peritoneal Dialysis Past Surgical History: Reports: Hx Abdominal Surgery - hernia repair, Hx Orthopedic Surgery - left knee replacement <PARIS LUCIO - Last Filed: 12/29/17 00:24> Review of Systems - Review of Systems Constitutional: No symptoms reported EENT: No symptoms reported Cardiovascular: No symptoms reported Respiratory: No symptoms reported Gastrointestinal: No symptoms reported Genitourinary: See HPI. denies: Incontinence Male Genitourinary: No symptoms reported Musculoskeletal: See HPI, Other - bilateral shoulder soreness Skin: No symptoms reported Hematologic/Lymphatic: No symptoms reported Neurological/Psychological: See HPI, Seizure - possible seizure -: Yes All other systems reviewed and negative <PARIS LUCIO - Last Filed: 12/29/17 00:24> Physical Exam <PARIS LUCIO - Last Filed: 12/29/17 00:24> <DIONTE BREAUX - Last Filed: 12/29/17 00:26> - Vital signs Vitals: Temp Pulse Resp BP Pulse Ox 98.3 F 100 20 176/122 H 97 12/28/17 14:30 12/28/17 14:30 12/28/17 14:30 12/28/17 14:30 12/28/17 14:30 - Notes Notes: PHYSICAL EXAM GENERAL: Alert, interacts well. No acute distress. Smells of alcohol. HEAD: Normocephalic, atraumatic. EYES: Pupils equal, round, and reactive to light. Extraocular movements intact. ENT: Oral mucosa moist, tongue midline. NECK: Full range of motion. Supple. Trachea midline. LUNGS: Clear to auscultation bilaterally, no wheezes, rales, or rhonchi. No respiratory distress. HEART: Regular rate and rhythm. Hypertensive. No murmurs, gallops, or rubs. ABDOMEN: Soft, non-tender. Non-distended. Bowel sounds present in all 4 quadrants. No guarding, rebound, or rigidity. EXTREMITIES: Moves all 4 extremities spontaneously. No edema. NEUROLOGICAL: Alert and oriented x3. Normal speech. Biceps and patellar DTRs 2+ bilaterally. No bite lacerations or trauma to the tongue. No tremors. Neurologically intact, pt moves all extremities with 5/5 muscle strength. PSYCH: Tearful. SKIN: Warm, dry, normal turgor. No rashes or lesions noted. (PARIS LUCIO) Course - Laboratory Result Diagrams: 12/28/17 13:54 12/28/17 13:54 <PARIS LUCIO - Last Filed: 12/29/17 00:24> - Laboratory Result Diagrams: 12/28/17 13:54 12/28/17 13:54 <DIONTE BREAUX - Last Filed: 12/29/17 00:26> - Re-evaluation Re-evalutation: 12/29/17 00:25 CBC shows macrocytosis consistent with drinking, CMP shows elevated sodium 149.3 but nothing that would explain his seizure, no evidence of alcoholic ketoacidosis, urinalysis and will, urine drug screen negative, serum alcohol is 333 however he is clinically sober. Able to walk without any difficulty. CT scan does not show any acute process. Patient does not wish to have any further evaluation, discussed with patient that he may not drive or take any Ultram. Discussed that he needs to follow-up with a neurologist. Refuses any further workup here. Patient will be discharged home. Patient is interested in quitting drinking. Honestly I do not believe that his seizure today was caused by alcohol withdrawal as currently he is not tremulous , he is not tachycardic and does not have any signs of alcohol withdrawal. Patient was given a Librium taper should he decide to quit drinking at home. Patient was also given Robaxin for his neck soreness. (DIONTE BREAUX) - Vital Signs Vital signs: Temp Pulse Resp BP Pulse Ox 98.3 F 100 20 164/92 H 97 12/28/17 14:30 12/28/17 14:30 12/28/17 14:30 12/28/17 14:31 12/28/17 14:30 - Laboratory Laboratory results interpreted by me: 12/28/17 12/28/17 13:54 13:54 RBC 4.06 L MCV 105 H MCH 36.3 H RDW 15.7 H Seg Neutrophils % 78.1 H Sodium 149.3 H Chloride 110 H Carbon Dioxide 21 L BUN 4 L AST 60 H Serum Alcohol 333 H* Discharge <NAVEEDPARIS - Last Filed: 12/29/17 00:24> <DIONTE BREAUX - Last Filed: 12/29/17 00:26> - Discharge Clinical Impression: Seizure, Alcohol abuse Hypertension Qualifiers: Hypertension type: essential hypertension Qualified Code(s): I10 - Essential ( primary) hypertension Condition: Stable Disposition: HOME, SELF-CARE Additional Instructions: Alcohol Withdrawal Your symptoms are caused by alcohol withdrawal. After a period of frequent drinking, the brain and body are changed by the alcohol. When you quit or reduce your drinking, the nervous system becomes unstable. Withdrawal symptoms can start a few hours after your last drink, but sometimes don't begin until a couple of days later. Symptoms can include shakiness, sweating, insomnia, nausea , vomiting, fearfulness, hallucinations, and seizures. In addition to the acute effects of alcohol withdrawal, we often have to deal with the medical effects of alcoholism. These problems often include dehydration, stomach irritation, intestinal bleeding, low blood sugar, liver disease, and pancreas inflammation. Treatment for alcohol withdrawal includes mild sedatives, vitamins, and fluids. You need to be with someone who can help if symptoms become severe. Many patients can withdraw at home. Admission to the hospital or a detox facility may be necessary if withdrawal symptoms are severe and uncontrollable. Abstaining from alcohol is the only effective long-term treatment. If you start drinking again, you will not be able to control yourself after the first drink. Treatment programs are available. In addition, many alcoholics benefit from Alcoholics Anonymous or other support groups available through your counselor or anabaptist security installation sales technician. [facility] and [employer] are support groups for friends and family members of an alcoholic. Go to the emergency room if you develop persistent vomiting, severe abdominal pain, fever, shortness of breath, hallucinations, uncontrollable tremors, or seizures. Neck Injury (Cervical Strain) You have a neck strain. This is an injury to the muscles and ligaments in the neck. There is no evidence of a fracture of the neck bones. Also, no injury to the spinal cord or nerve roots was detected. Usually, stiffness and pain INCREASE for the first 24-48 hours after the injury. The pain will gradually resolve and the neck will become more mobile. Most patients are back at work or school within a few days. Typically, complete healing takes about two or three weeks. The usual initial treatment is rest and cold packs. A neck collar may be placed to keep the muscles of the neck at rest. Antiinflammatory and muscle relaxing medication are often used to reduce the spasm and irritation. You should call the doctor, or go to the hospital, if you develop numbness or weakness in any extremity, problems with your bladder or bowel, or pain radiating down the arms. Prescriptions: Chlordiazepoxide HCl [Librium 25 mg Capsule] 1 cap PO ASDIR PRN #24 capsule PRN Reason: Methocarbamol [Robaxin 750 mg Tablet] 750 mg PO ASDIR PRN #40 tablet PRN Reason: Forms: Elevated Blood Pressure Scribe Attestation: 12/29/17 00:26 I personally performed the services described in the documentation, reviewed and edited the documentation which was dictated to the scribe in my presence, and it accurately records my words and actions. (DIONTE BREAUX) Scribe Documentation - Scribe Written by Rios:: Rios Dao 12/28/17 1434 acting as scribe for :: Heber <PARIS LUCIO - Last Filed: 12/29/17 00:24>
[2017-12-28] MEDS ORDERED: RINGERS SOLUTION,LACTATED 1,000 ML IV ONE (14:43)
[2017-12-28 14:59] VITALS: BP 164/92
[2017-12-28 15:04] LABS: ABSOLUTE BASOPHILS # (AUTO) 0.1 10^3/uL (0.0-0.2); ABSOLUTE EOSINOPHILS # (AUTO) 0.2 10^3/uL (0.0-0.6); ABSOLUTE LYMPHOCYTES (AUTO) 1.5 10^3/uL (0.5-4.7); ABSOLUTE MONOCYTES (AUTO) 0.5 10^3/uL (0.1-1.4); ABSOLUTE NEUT (AUTO) 8.1 10^3/uL (1.7-8.2); BASOPHILS % (AUTO) 0.5 % (0-2); EOSINOPHILS % (AUTO) 1.5 % (0-6); HEMATOCRIT 42.6 % (37.9-51.0); HEMOGLOBIN 14.8 g/dL (13.5-17.0); LYMPHOCYTES % (AUTO) 14.7 % (13-45); MEAN CORPUSCULAR HEMOGLOBIN 36.3 pg (27.0-33.4); MEAN CORPUSCULAR HGB CONC 34.7 g/dL (32.0-36.0); MEAN CORPUSCULAR VOLUME 105 fl (80-97); MONOCYTES % (AUTO) 5.2 % (3-13); PLATELET COUNT 295 10^3/uL (150-450); RED BLOOD COUNT 4.06 10^6/uL (4.35-5.55); RED CELL DISTRIBUTION WIDTH 15.7 % (11.5-14.0); SEGMENTED NEUTROPHILS % (AUTO) 78.1 % (42-78); TOTAL CELLS COUNTED % (AUTO) 100 %; WHITE BLOOD COUNT 10.4 10^3/uL (4.0-10.5)
[2017-12-28 15:09] LABS: APPEARANCE,URINE CLEAR; BILIRUBIN,URINE NEGATIVE (NEGATIVE); COLOR,URINE COLORLESS; GLUCOSE, URINE NEGATIVE (NEGATIVE); KETONES,URINE NEGATIVE (NEGATIVE); LEUKOCYTE ESTERASE,URINE NEGATIVE (NEGATIVE); NITRITE,URINE NEGATIVE (NEGATIVE); PROTEIN,URINE NEGATIVE (NEGATIVE); URINE SPECIFIC GRAVITY 1.002; UROBILINOGEN,URINE NEGATIVE mg/dL (<2.0)
[2017-12-28 15:23] LABS: URINE AMPHETAMINES SCREEN NEGATIVE; URINE BARBITURATES SCREEN NEGATIVE; URINE BENZODIAZEPINES SCREEN NEGATIVE; URINE COCAINE SCREEN NEGATIVE; URINE MARIJUANA (THC) SCREEN NEGATIVE; URINE METHADONE SCREEN NEGATIVE; URINE PHENCYCLIDINE SCREEN NEGATIVE
[2017-12-28 15:28] LABS: ALANINE AMINOTRANSFERASE 54 U/L (21-72); ALBUMIN 4.5 g/dL (3.5-5.0); ALKALINE PHOSPHATASE 85 U/L (38-126); ANION GAP 18 (5-19); ASPARTATE AMINO TRANSFERASE 60 U/L (17-59); BILIRUBIN,DIRECT 0.3 mg/dL (0.0-0.4); BILIRUBIN,TOTAL 0.5 mg/dL (0.2-1.3); BLOOD UREA NITROGEN 4 mg/dL (7-20); CARBON DIOXIDE 21 mmol/L (22-30); CHLORIDE 110 mmol/L (98-107); GLUCOSE 84 mg/dL (75-110); POTASSIUM 4.5 mmol/L (3.6-5.0); SODIUM 149.3 mmol/L (137-145); TOTAL PROTEIN 7.2 g/dL (6.3-8.2)
[2017-12-28 15:40] LABS: ALCOHOL 333 mg/dL (NONE DETECTED)
[2017-12-28] MEDS ORDERED: METHOCARBAMOL 500 MG TABLET PO ONE (16:08)
[2017-12-28] MEDS ORDERED: LORAZEPAM 0.5 MG TABLET PO ONE (16:08)
--- NOTE | 2017-12-28 21:09 | EKG REPORT ---
SEVERITY:- ABNORMAL ECG - SINUS RHYTHM LEFT VENTRICULAR HYPERTROPHY PROLONGED QT INTERVAL : Confirmed by: Rosas Landry MD 28-Dec-2017 21:09:23
== END 2017-12-28 16:27 | disposition home or self-care (01) ==
LOC: ER 14:22
DX: R56.9 Unspecified convulsions (principal); F10.10 Alcohol abuse, uncomplicated; I10 Essential (primary) hypertension; F17.200 Nicotine dependence, unspecified, uncomplicated; M25.512 Pain in left shoulder; M25.511 Pain in right shoulder
CPT/HCPCS: 36415; 80053; 80307; 81001; 85025; 93005; 93010; 99284

== ENCOUNTER → 2017-12-29 | Emergency (ER) | payer SELFPAY ==
[~2017-12-29] MED LIST: LEVETIRACETAM 1000 MG/NACL-ISO 1,000 MG/100 ML RTUPB IV ONE; LORAZEPAM 1 MG TABLET PO ONE; LORAZEPAM INJ 2 MG/1 ML VIAL IV ONE
--- NOTE | 2017-12-29 10:08 | ER Document Report ---
ED General - General Chief Complaint: Alcohol Withdrawl Stated Complaint: ALCOHOL WITHDRAWL Time Seen by Provider: 12/29/17 09:07 Notes: 37-year-old male history of alcoholism. Multiple detox. Last one in June 2016 to the emergency department wanting detox. Patient states that he has not had a drink since yesterday. Now shaking. Was given a prescription for Librium however states he can get it filled because he does not have any money. TRAVEL OUTSIDE OF THE [place] IN LAST 30 DAYS: No - HPI Onset: Yesterday - Related Data Allergies/Adverse Reactions: No Known Allergies Allergy (Unverified 12/14/17 18:43) Past Medical History - General Information source: Patient - Social History Smoking Status: Smoker,Current Status Unk Frequency of alcohol use: Heavy Drug Abuse: Marijuana Lives with: Family Family History: None Patient has suicidal ideation: No Patient has homicidal ideation: No - Past Medical History Cardiac Medical History: Reports: Hx Hypertension Renal/ Medical History: Denies: Hx Peritoneal Dialysis Past Surgical History: Reports: Hx Abdominal Surgery - hernia repair, Hx Orthopedic Surgery - left knee replacement Review of Systems - Review of Systems Notes: Constitutional: denies: Chills, Diaphoresis, Fever, Malaise, Weakness EENT: denies: Eye discharge, Blurred vision, Tearing, Double vision, Nose congestion, Nose discharge, Throat swelling, Mouth pain Cardiovascular: Complaining of tachycardia and chest pain, denies any syncope, denies any peripheral edema. Respiratory: denies: Cough, Hurts to breathe, Wheezing, Shortness of breath Gastrointestinal: denies: Abdominal pain, Diarrhea, Nausea, Vomiting, Black stools, bright red blood in stool Genitourinary: denies: Burning, Dysuria, Discharge, Frequency, Flank pain, Hematuria Musculoskeletal: denies: Joint pain, Joint swelling, Muscle pain, Muscle stiffness, back pain Hematologic/Lymphatic: denies: Anemia, Easy bleeding, Easy bruising, Blood clots Neurological/Psychological: Patient states that he is an alcoholic, denies any hallucinations. Shaky all over. Skin: No lesions, no masses, no skin breakdown, no abscesses Physical Exam - Vital signs Vitals: Temp Pulse Resp BP Pulse Ox 98.5 F 82 18 183/110 H 95 12/29/17 09:10 12/29/17 09:10 12/29/17 09:10 12/29/17 09:10 12/29/17 09:10 Interpretation: Hypertensive, Tachycardic - General General appearance: Appears well, Alert - HEENT Head: Normocephalic, Atraumatic Eyes: Normal Pupils: PERRL - Respiratory Respiratory status: No respiratory distress Chest status: Nontender Breath sounds: Normal Chest palpation: Normal - Cardiovascular Rhythm: Tachycardia Heart sounds: Normal auscultation Murmur: No - Abdominal Inspection: Normal Distension: No distension Bowel sounds: Normal Tenderness: Nontender Organomegaly: No organomegaly - Back Back: Normal, Nontender - Extremities General upper extremity: Normal inspection, Nontender, Normal color, Normal ROM , Normal temperature General lower extremity: Normal inspection, Nontender, Normal color, Normal ROM , Normal temperature, Normal weight bearing. No: Rubio's sign - Neurological Neuro grossly intact: Yes Cognition: Normal Orientation: AAOx4 Dolores Coma Scale Eye Opening: Spontaneous Ong Coma Scale Verbal: Oriented Ong Coma Scale Motor: Obeys Commands Dolores Coma Scale Total: 15 Speech: Normal Motor strength normal: LUE, RUE, LLE, RLE Sensory: Normal - Psychological Associated symptoms: Normal affect, Normal mood - Skin Skin Temperature: Warm Skin Moisture: Dry Skin Color: Normal Course - Re-evaluation Re-evalutation: 12/29/17 10:42 Patient reportedly has not had a drink in 24 hours. He is tachycardic and hypertensive. No active hallucinations. Has a good clear train of thought. Was given a prescription for Librium but did not get it filled. I am rechecking his labs. I have told him that we do not do detox here but she is hypertensive and tachycardic may already be at that point of needing to be admitted for delirium tremens. Patient is shaking at this time. Ativan has been ordered. Will get basic labs as well as EKG and reassess at this time. 12/29/17 11:36 At this time patient is still hypertensive. Blood pressure is 180/110 and shaking. Very concerned that he may actually going to fulminant DTs. I am going to give him IV Ativan and load him at this time with IV Keppra. Will consult with hospitalist for admission at this time. - Vital Signs Vital signs: Temp Pulse Resp BP Pulse Ox 98.5 F 82 18 183/110 H 95 12/29/17 09:10 12/29/17 09:10 12/29/17 09:10 12/29/17 09:10 12/29/17 09:10 12/29/17 11:13 Laboratory 12/29/17 12/29/17 08:47 08:47 WBC 9.4 RBC 3.96 L Hgb 14.5 Hct 41.3 MCV 104 H MCH 36.6 H MCHC 35.1 RDW 15.6 H Plt Count 261 Seg Neutrophils % 82.5 H Lymphocytes % 6.9 L Monocytes % 9.7 Eosinophils % 0.6 Basophils % 0.3 Absolute Neutrophils 7.8 Absolute Lymphocytes 0.7 Absolute Monocytes 0.9 Absolute Eosinophils 0.1 Absolute Basophils 0.0 Sodium 142.8 Potassium 4.3 Chloride 107 Carbon Dioxide 24 Anion Gap 12 BUN 6 L Creatinine 0.68 Est GFR ( Amer) > 60 Est GFR (Non-Af Amer) > 60 Glucose 151 H Calcium 9.6 Total Bilirubin 0.9 Direct Bilirubin 0.4 Neonat Total Bilirubin Not Reportable Neonat Direct Bilirubin Not Reportable Neonat Indirect Bili Not Reportable AST 48 ALT 54 Alkaline Phosphatase 84 Total Protein 7.2 Albumin 4.1 Serum Alcohol < 10 Patient with an alcohol level of less than 10 for heavy drinker there is definite concern for significant withdrawal. He is already hypertensive. Not tachycardic at this time however. I am giving a milligram of Ativan p.o. as well as 2 mg IV. Patient may or may not respond. May need to be admitted. Was prescribed Librium yesterday but did not get it filled. Does seem committed at this time for withdrawal from alcohol but mother not he can do this as an outpatient I do not know at this time. - Laboratory Result Diagrams: 12/29/17 08:47 12/29/17 08:47 Laboratory results interpreted by me: 12/29/17 12/29/17 08:47 08:47 RBC 3.96 L MCV 104 H MCH 36.6 H RDW 15.6 H Seg Neutrophils % 82.5 H Lymphocytes % 6.9 L BUN 6 L Glucose 151 H - EKG Interpretation by Nh EKG shows normal: Sinus rhythm, Intervals, QRS Complexes, ST-T Waves Voltage: Consistant with [facility] Critical Care Note - Critical Care Note Total time excluding time spent on procedures (mins): 45 Comments: Delirium tremens, hypertension, alcohol withdrawal Discharge - Discharge Clinical Impression: Delirium tremens Alcohol withdrawal Qualifiers: Complication of substance-induced condition: with delirium Qualified Code(s): F10.231 - Alcohol dependence with withdrawal delirium Condition: Good Disposition: ADMITTED INPATIENT Admitting Provider: Sammy Wheeler Unit Admitted: [facility]
[2017-12-29 10:35] LABS: ABSOLUTE EOSINOPHILS # (AUTO) 0.1 10^3/uL (0.0-0.6); ABSOLUTE LYMPHOCYTES (AUTO) 0.7 10^3/uL (0.5-4.7); ABSOLUTE MONOCYTES (AUTO) 0.9 10^3/uL (0.1-1.4); ABSOLUTE NEUT (AUTO) 7.8 10^3/uL (1.7-8.2); BASOPHILS % (AUTO) 0.3 % (0-2); EOSINOPHILS % (AUTO) 0.6 % (0-6); HEMATOCRIT 41.3 % (37.9-51.0); HEMOGLOBIN 14.5 g/dL (13.5-17.0); LYMPHOCYTES % (AUTO) 6.9 % (13-45); MEAN CORPUSCULAR HEMOGLOBIN 36.6 pg (27.0-33.4); MEAN CORPUSCULAR HGB CONC 35.1 g/dL (32.0-36.0); MEAN CORPUSCULAR VOLUME 104 fl (80-97); MONOCYTES % (AUTO) 9.7 % (3-13); PLATELET COUNT 261 10^3/uL (150-450); RED BLOOD COUNT 3.96 10^6/uL (4.35-5.55); RED CELL DISTRIBUTION WIDTH 15.6 % (11.5-14.0); SEGMENTED NEUTROPHILS % (AUTO) 82.5 % (42-78); TOTAL CELLS COUNTED % (AUTO) 100 %; WHITE BLOOD COUNT 9.4 10^3/uL (4.0-10.5)
[2017-12-29 10:47] LABS: ALANINE AMINOTRANSFERASE 54 U/L (21-72); ALBUMIN 4.1 g/dL (3.5-5.0); ALKALINE PHOSPHATASE 84 U/L (38-126); ANION GAP 12 (5-19); ASPARTATE AMINO TRANSFERASE 48 U/L (17-59); BILIRUBIN,DIRECT 0.4 mg/dL (0.0-0.4); BILIRUBIN,TOTAL 0.9 mg/dL (0.2-1.3); BLOOD UREA NITROGEN 6 mg/dL (7-20); CALCIUM 9.6 mg/dL (8.4-10.2); CARBON DIOXIDE 24 mmol/L (22-30); CHLORIDE 107 mmol/L (98-107); GLUCOSE 151 mg/dL (75-110); POTASSIUM 4.3 mmol/L (3.6-5.0); SODIUM 142.8 mmol/L (137-145); TOTAL PROTEIN 7.2 g/dL (6.3-8.2)
[2017-12-29 10:48] LABS: ALCOHOL < 10 mg/dL (NONE DETECTED)
--- NOTE | 2017-12-29 12:23 | EKG REPORT ---
SEVERITY:- ABNORMAL ECG - SINUS RHYTHM LEFT VENTRICULAR HYPERTROPHY BORDERLINE PROLONGED QT INTERVAL NEW BIPHASIC T WAVES ANTEROSEPTAL LEADS, CLINICAL CORRELATION NEEDED. : Confirmed by: Rosas Landry MD 29-Dec-2017 12:22:47
[2017-12-29 12:30] LABS: APPEARANCE,URINE CLEAR; BILIRUBIN,URINE NEGATIVE (NEGATIVE); COLOR,URINE YELLOW; GLUCOSE, URINE NEGATIVE (NEGATIVE); KETONES,URINE NEGATIVE (NEGATIVE); LEUKOCYTE ESTERASE,URINE NEGATIVE (NEGATIVE); NITRITE,URINE NEGATIVE (NEGATIVE); PROTEIN,URINE 30 mg/dL (NEGATIVE); URINE SPECIFIC GRAVITY 1.015; UROBILINOGEN,URINE NEGATIVE mg/dL (<2.0)
[2017-12-29 12:47] LABS: URINE AMPHETAMINES SCREEN NEGATIVE; URINE BARBITURATES SCREEN NEGATIVE; URINE BENZODIAZEPINES SCREEN UNCONFIRMED POSITIVE; URINE COCAINE SCREEN NEGATIVE; URINE MARIJUANA (THC) SCREEN NEGATIVE; URINE METHADONE SCREEN NEGATIVE; URINE PHENCYCLIDINE SCREEN NEGATIVE
[2017-12-29 13:16] VITALS: BP 163/100
== END | disposition left against medical advice (07) ==
LOC: ER 09:03 → EH 12:32 → UNDOADMIN 12:32
DX: F10.231 Alcohol dependence with withdrawal delirium (principal); T42.4X6A Underdosing of benzodiazepines, initial encounter; Z91.120 Patient's intentional underdosing of medication regimen due to financial hardship; Z91.14 Patient's other noncompliance with medication regimen; I10 Essential (primary) hypertension; R00.0 Tachycardia, unspecified; R07.9 Chest pain, unspecified; F12.10 Cannabis abuse, uncomplicated; Z53.20 Procedure and treatment not carried out because of patient's decision for unspecified reasons
CPT/HCPCS: 93005; 99291; 96374; 96375; 36415; 80307 ×2; 85025; 80053; 81001; 93010; J2060; J1953